=== PATIENT | female | born 1965 | race Two or more races ===

== ENCOUNTER 2022-05-30 11:14 | Emergency (ER) | payer MEDICAID ==
[~2022-05-30] VITALS: Ht 162.6 cm; Wt 129.6 kg
[2022-05-30] MEDS ORDERED: CITA-144 PO ×2 (11:29→12:17)
[2022-05-30] MEDS ORDERED: TEMA7.5C26 PO (11:29)
[2022-05-30] MEDS ORDERED: RISP0.5T61 PO ×2 (11:29→12:17)
[2022-05-30 12:00] VITALS: BP 147/87
== END 2022-05-30 12:40 | disposition home or self-care (01) ==
LOC: EMS 11:20
DX: F20.9 Schizophrenia, unspecified (principal); I10 Essential (primary) hypertension; E11.9 Type 2 diabetes mellitus without complications; Z79.899 Other long term (current) drug therapy; Z76.0 Encounter for issue of repeat prescription
CPT/HCPCS: 99281; Z7502

== ENCOUNTER 2022-09-20 11:24 | Emergency (ER) | payer MEDICAID ==
[~2022-09-20] VITALS: Ht 162.6 cm; Wt 113.6 kg
[~2022-09-20 11:24] MED LIST: CITA-144 PO; RISP0.5T61 PO; TEMA7.5C26 PO
[2022-09-20 13:31] LABS: BASOPHILS % (AUTO) 0.7 % (0.0-2.0); EOSINOPHILS % (AUTO) 0.9 % (1.0-6.0); HEMATOCRIT 52.2 % (36-46); HEMOGLOBIN 17.2 g/dL (12.0-16.0); LYMPHOCYTES % (AUTO) 31.1 % (22.0-44.0); MEAN CORPUSCULAR HEMOGLOBIN 31.3 pg (26.0-34.0); MEAN CORPUSCULAR VOLUME 95 fL (80-100); MONOCYTES # (AUTO) 0.7 K/uL (0.1-1.0); MONOCYTES % (AUTO) 6.8 % (2.0-9.0); NEUTROPHILS # (AUTO) 5.8 K/uL (1.8-7.7); NEUTROPHILS % (AUTO) 60.5 % (40.0-70.0); PLATELET COUNT (AUTO) 180 K/uL (150-450); RED CELL DISTRIBUTION WIDTH 14.5 % (11.5-14.5)
[2022-09-20 13:40] LABS: ANION GAP 10 mmol/L (8-16); CALCIUM, TOTAL 9.1 mg/dL (8.8-10.5); CARBON DIOXIDE 25 mmol/L (22-29); CHLORIDE 100 mmol/L (98-107); CREATININE 0.75 mg/dL (0.60-1.30); GLOMERULAR FILTR. RATE CALC > 60 mL/min (>60); GLUCOSE,RANDOM 232 mg/dL (70-110); POTASSIUM 3.5 mmol/L (3.5-5.1); SODIUM SERUM 135 mmol/L (136-145); UREA NITROGEN, BLOOD 7 mg/dL (7-18)
[2022-09-20] MEDS ORDERED: AMLO-257 PO (14:45)
[2022-09-20 15:20] VITALS: BP 145/89
== END 2022-09-20 15:34 | disposition home or self-care (01) ==
LOC: EMS 11:28
DX: F20.9 Schizophrenia, unspecified (principal); E11.9 Type 2 diabetes mellitus without complications; I10 Essential (primary) hypertension; F17.210 Nicotine dependence, cigarettes, uncomplicated; Z76.0 Encounter for issue of repeat prescription
CPT/HCPCS: 80048; 82962; 85025; 99284

== ENCOUNTER 2024-01-09 14:30 | Emergency (ER) | payer MEDICAID, OTHER ==
[~2024-01-09] VITALS: Ht 162.6 cm; Wt 106.0 kg
[~2024-01-09 14:30] MED LIST changes: +AMLO-257 PO
[2024-01-09 14:35] VITALS: BP 140/80; PULSE 106; RESP 18; TEMP 97.4
[2024-01-09] MEDS ORDERED: IBUP-1492 PO (17:24)
[2024-01-09] MEDS ORDERED: ACET-3385 PO (17:25)
== END 2024-01-09 17:33 | disposition home or self-care (01) ==
LOC: EMS 14:30
DX: M25.562 Pain in left knee (principal); E11.9 Type 2 diabetes mellitus without complications; I10 Essential (primary) hypertension; F20.9 Schizophrenia, unspecified; F17.210 Nicotine dependence, cigarettes, uncomplicated
CPT/HCPCS: 99283